=== PATIENT | female | born 1960 | race Two or more races ===

== ENCOUNTER 2022-12-22 05:51 | Emergency (ER) | payer MEDICAID ==
[~2022-12-22] VITALS: Ht 162.6 cm; Wt 58.0 kg
[2022-12-22 06:02] VITALS: BP 162/125
== END 2022-12-22 12:12 | disposition left against medical advice (07) ==
LOC: ER 05:51
DX: M79.18 Myalgia, other site (principal); I10 Essential (primary) hypertension; M19.90 Unspecified osteoarthritis, unspecified site; E78.00 Pure hypercholesterolemia, unspecified; Z98.890 Other specified postprocedural states
CPT/HCPCS: 99281